=== PATIENT | male | born 1955 ===

== ENCOUNTER 2018-05-07 15:42 | Inpatient (IN) ==
[2018-05-07] MEDS ORDERED: ACETAMINOPHEN 325 MG TABLET PO PRN (17:18)
[2018-05-07] MEDS ORDERED: ONDANSETRON 4 MG/2 ML VIAL IV PRN (17:18)
[2018-05-07] MEDS ORDERED: FUROSEMIDE INJ 200 MG in SODIUM CHLORIDE 0.9% 50 ML IV ONE (17:22)
[2018-05-07] MEDS ORDERED: ENOXAPARIN 30 MG/0.3 ML SYRINGE SUBCUT SCH (17:30)
[2018-05-07 18:03] LABS: Basophils % 0.2 % (0.0-0.8); Eosinophils # 0.1 10*3/uL (0.0-0.87); Eosinophils % 0.9 % (0.00-10.9); Hematocrit 40.1 VOL% (42.0-52.0); Hemoglobin 13.9 GM/DL (14.0-18.0); Immature Granulocytes % 0.1 %; Immature Granulocytes Absolute 0.01 #; Lymphocytes # 0.9 10*3/uL (1.4-4.0); Lymphocytes % 11.2 % (21.2-54.2); Mean Corpuscular HGB Conc 34.7 GM/DL (32-36); Mean Corpuscular Hemoglobin 31 PG (27-34); Mean Corpuscular Volume 90.3 FL (87-102); Mean Platelet Volume 10.1 FL (9.6-12.0); Monocytes # 0.9 10*3/uL (0.11-0.8); Monocytes % 11.6 % (1.7-12.7); Neutrophils # 6.1 10*3/uL (1.4-7.4); Platelet Count 164 T/CUMM (130-400); Red Blood Count 4.44 MC/CUMM (3.8-5.5); Red Cell Distribution Width 13.8 % (9.3-17.3)
[2018-05-07 19:19] LABS: Calcium 7.3 MG/DL (8.5-10.1); Osmolality,Calculated 291.9 MOS/KG (273-304); Troponin I 0.03 NG/ML (0.00-0.045)
[2018-05-07] MEDS: amLODIPine 2.5 MG TABLET PO SCH (21:28)
[2018-05-07] MEDS: CARVEDILOL 3.125 MG TABLET PO SCH (21:28)
[2018-05-07] MEDS: APIXABAN 2.5 MG TABLET PO SCH (21:28)
[2018-05-07] MEDS: ISOSORBIDE DINITRATE 20 MG TABLET PO SCH (21:28)
[2018-05-07] MEDS: INSULIN GLARGINE 100 UNIT/ML SUBCUT SCH (22:10)
[2018-05-08 05:44] LABS: Calcium 7.9 MG/DL (8.5-10.1); Osmolality,Calculated 295.2 MOS/KG (273-304); Troponin I 0.042 NG/ML (0.00-0.045)
[2018-05-08] MEDS: hydrALAZINE 10 MG TABLET PO SCH (09:08)
[2018-05-08] MEDS: ISOSORBIDE DINITRATE 20 MG TABLET PO SCH ×3 (09:08→21:30)
[2018-05-08] MEDS: amLODIPine 2.5 MG TABLET PO SCH ×2 (09:08→21:30)
[2018-05-08] MEDS: SEVELAMER CARBONATE 800 MG TABLET PO SCH ×3 (09:10→16:32)
[2018-05-08] MEDS: ASPIRIN EC 81 MG TABLET PO SCH (09:11)
[2018-05-08] MEDS: PANTOPRAZOLE 40 MG TABLET PO SCH (09:11)
[2018-05-08] MEDS: AMIODARONE 200 MG TABLET PO SCH (09:11)
[2018-05-08] MEDS: CARVEDILOL 3.125 MG TABLET PO SCH ×2 (09:11→18:09)
[2018-05-08] MEDS: glipiZIDE 5 MG TABLET PO SCH (09:11)
[2018-05-08] MEDS: APIXABAN 2.5 MG TABLET PO SCH ×2 (09:11→21:30)
[2018-05-08] MEDS: ERYTHROMYCIN 0.5% OPHT OINT 3.5 GM TUBE BOTH EYES SCH ×3 (12:23→21:30)
[2018-05-08] MEDS: INSULIN REGULAR 100 UNIT/ML SUBCUT SCH ×3 (12:23→20:19)
[2018-05-08] MEDS ORDERED: ALBUTEROL/IPRATROPIUM 3 ML NEB RESP TX PRN (18:25)
[2018-05-08] MEDS ORDERED: methylPREDNISolone SOD SUC 125 MG/2 ML VIAL IV ONE (18:34)
[2018-05-08] MEDS: ALBUTEROL/IPRATROPIUM 3 ML NEB RESP TX SCH (18:35)
[2018-05-08] MEDS ORDERED: methylPREDNISolone SOD SUC 125 MG/2 ML VIAL ONE (18:40)
[2018-05-08] MEDS: INSULIN GLARGINE 100 UNIT/ML SUBCUT SCH (21:30)
[2018-05-09] MEDS: ALBUTEROL/IPRATROPIUM 3 ML NEB RESP TX SCH ×4 (00:42→19:41)
[2018-05-09 01:35] LABS: Basophils % 0.2 % (0.0-0.8); Hematocrit 37.3 VOL% (42.0-52.0); Hemoglobin 12.5 GM/DL (14.0-18.0); Immature Granulocytes % 0.3 %; Immature Granulocytes Absolute 0.03 #; Lymphocytes # 0.3 10*3/uL (1.4-4.0); Lymphocytes % 2.7 % (21.2-54.2); Mean Corpuscular HGB Conc 33.5 GM/DL (32-36); Mean Corpuscular Hemoglobin 31 PG (27-34); Mean Corpuscular Volume 92.3 FL (87-102); Monocytes # 0.5 10*3/uL (0.11-0.8); Monocytes % 4.9 % (1.7-12.7); Neutrophils # 9.6 10*3/uL (1.4-7.4); Neutrophils % 91.9 % (38.7-73.9); Platelet Count 169 T/CUMM (130-400); Red Blood Count 4.04 MC/CUMM (3.8-5.5); Red Cell Distribution Width 13.8 % (9.3-17.3); White Blood Count 10.5 T/CUMM (4-12)
[2018-05-09 02:02] LABS: Osmolality,Calculated 285.7 MOS/KG (273-304); Potassium 4.9 MMOL/L (3.5-5.1)
[2018-05-09 05:34] LABS: Band Neutrophils 16 % (0-10); Lymphocytes 1 % (20-55); Platelet Estimate Adequate; Segmented Neutrophils 80 % (50-85); Total Cells Counted 100
[2018-05-09] MEDS: glipiZIDE 5 MG TABLET PO SCH (08:36)
[2018-05-09] MEDS: ASPIRIN EC 81 MG TABLET PO SCH (08:36)
[2018-05-09] MEDS: AMIODARONE 200 MG TABLET PO SCH (08:36)
[2018-05-09] MEDS: APIXABAN 2.5 MG TABLET PO SCH ×2 (08:36→21:30)
[2018-05-09] MEDS: INSULIN REGULAR 100 UNIT/ML SUBCUT SCH ×4 (08:36→21:31)
[2018-05-09] MEDS: SEVELAMER CARBONATE 800 MG TABLET PO SCH ×3 (08:36→16:56)
[2018-05-09] MEDS: hydrALAZINE 10 MG TABLET PO SCH (08:36)
[2018-05-09] MEDS: amLODIPine 2.5 MG TABLET PO SCH ×2 (08:36→21:31)
[2018-05-09] MEDS: ISOSORBIDE DINITRATE 20 MG TABLET PO SCH ×3 (08:36→21:30)
[2018-05-09] MEDS: CARVEDILOL 3.125 MG TABLET PO SCH ×2 (08:36→17:55)
[2018-05-09] MEDS: PANTOPRAZOLE 40 MG TABLET PO SCH (08:36)
[2018-05-09] MEDS: ERYTHROMYCIN 0.5% OPHT OINT 3.5 GM TUBE BOTH EYES SCH ×4 (08:49→21:31)
[2018-05-09] MEDS: INSULIN GLARGINE 100 UNIT/ML SUBCUT SCH (21:31)
[2018-05-10] MEDS: ALBUTEROL/IPRATROPIUM 3 ML NEB RESP TX SCH ×4 (00:41→19:00)
[2018-05-10 05:06] LABS: Basophils % 0.3 % (0.0-0.8); Eosinophils % 0.2 % (0.00-10.9); Hematocrit 40.1 VOL% (42.0-52.0); Hemoglobin 13.3 GM/DL (14.0-18.0); Immature Granulocytes % 0.4 %; Immature Granulocytes Absolute 0.04 #; Lymphocytes # 0.8 10*3/uL (1.4-4.0); Lymphocytes % 7.6 % (21.2-54.2); Mean Corpuscular HGB Conc 33.2 GM/DL (32-36); Mean Corpuscular Hemoglobin 31 PG (27-34); Mean Corpuscular Volume 92.4 FL (87-102); Mean Platelet Volume 9.9 FL (9.6-12.0); Monocytes # 1.4 10*3/uL (0.11-0.8); Monocytes % 12.9 % (1.7-12.7); Neutrophils # 8.4 10*3/uL (1.4-7.4); Neutrophils % 78.6 % (38.7-73.9); Platelet Count 214 T/CUMM (130-400); Red Blood Count 4.34 MC/CUMM (3.8-5.5); Red Cell Distribution Width 13.7 % (9.3-17.3); White Blood Count 10.7 T/CUMM (4-12)
[2018-05-10 05:40] LABS: Calcium 8.7 MG/DL (8.5-10.1); Osmolality,Calculated 279.5 MOS/KG (273-304); Potassium 4.5 MMOL/L (3.5-5.1)
[2018-05-10] MEDS: INSULIN REGULAR 100 UNIT/ML SUBCUT SCH ×4 (07:35→21:10)
[2018-05-10] MEDS: AMIODARONE 200 MG TABLET PO SCH (08:28)
[2018-05-10] MEDS: hydrALAZINE 10 MG TABLET PO SCH (08:28)
[2018-05-10] MEDS: SEVELAMER CARBONATE 800 MG TABLET PO SCH ×3 (08:28→16:03)
[2018-05-10] MEDS: ASPIRIN EC 81 MG TABLET PO SCH (08:28)
[2018-05-10] MEDS: amLODIPine 2.5 MG TABLET PO SCH ×2 (08:28→21:09)
[2018-05-10] MEDS: PANTOPRAZOLE 40 MG TABLET PO SCH (08:28)
[2018-05-10] MEDS: ISOSORBIDE DINITRATE 20 MG TABLET PO SCH ×3 (08:28→21:09)
[2018-05-10] MEDS: CARVEDILOL 3.125 MG TABLET PO SCH ×2 (08:28→16:05)
[2018-05-10] MEDS: glipiZIDE 5 MG TABLET PO SCH (08:28)
[2018-05-10] MEDS: ERYTHROMYCIN 0.5% OPHT OINT 3.5 GM TUBE BOTH EYES SCH ×4 (08:28→21:10)
[2018-05-10] MEDS: APIXABAN 2.5 MG TABLET PO SCH ×2 (08:29→21:09)
[2018-05-10] MEDS: INSULIN GLARGINE 100 UNIT/ML SUBCUT SCH (21:09)
[2018-05-11] MEDS: ALBUTEROL/IPRATROPIUM 3 ML NEB RESP TX SCH ×4 (00:20→19:04)
[2018-05-11 05:57] LABS: Osmolality,Calculated 285.7 MOS/KG (273-304); Potassium 4.6 MMOL/L (3.5-5.1)
[2018-05-11] MEDS: PANTOPRAZOLE 40 MG TABLET PO SCH (09:04)
[2018-05-11] MEDS: SEVELAMER CARBONATE 800 MG TABLET PO SCH ×3 (09:04→17:00)
[2018-05-11] MEDS: APIXABAN 2.5 MG TABLET PO SCH ×2 (09:04→21:10)
[2018-05-11] MEDS: INSULIN REGULAR 100 UNIT/ML SUBCUT SCH ×4 (09:04→21:10)
[2018-05-11] MEDS: hydrALAZINE 10 MG TABLET PO SCH (09:04)
[2018-05-11] MEDS: ISOSORBIDE DINITRATE 20 MG TABLET PO SCH ×3 (09:04→21:10)
[2018-05-11] MEDS: glipiZIDE 5 MG TABLET PO SCH (09:04)
[2018-05-11] MEDS: AMIODARONE 200 MG TABLET PO SCH (09:04)
[2018-05-11] MEDS: CARVEDILOL 3.125 MG TABLET PO SCH ×2 (09:04→17:00)
[2018-05-11] MEDS: amLODIPine 2.5 MG TABLET PO SCH ×2 (09:04→21:10)
[2018-05-11] MEDS: ASPIRIN EC 81 MG TABLET PO SCH (09:04)
[2018-05-11] MEDS: ERYTHROMYCIN 0.5% OPHT OINT 3.5 GM TUBE BOTH EYES SCH ×4 (09:07→21:10)
[2018-05-11] MEDS ORDERED: HYDROCORTISONE 100 MG VIAL IV ONE (09:44)
[2018-05-11] MEDS: INSULIN GLARGINE 100 UNIT/ML SUBCUT SCH (21:10)
[2018-05-12] MEDS: ALBUTEROL/IPRATROPIUM 3 ML NEB RESP TX SCH ×3 (00:22→13:27)
[2018-05-12] MEDS: SEVELAMER CARBONATE 800 MG TABLET PO SCH ×2 (07:30→11:30)
[2018-05-12] MEDS: INSULIN REGULAR 100 UNIT/ML SUBCUT SCH ×2 (07:30→11:30)
[2018-05-12] MEDS: ISOSORBIDE DINITRATE 20 MG TABLET PO SCH (09:00)
[2018-05-12] MEDS: glipiZIDE 5 MG TABLET PO SCH ×2 (09:00→16:41)
[2018-05-12] MEDS: ERYTHROMYCIN 0.5% OPHT OINT 3.5 GM TUBE BOTH EYES SCH (09:00)
[2018-05-12] MEDS: AMIODARONE 200 MG TABLET PO SCH (09:00)
[2018-05-12] MEDS: APIXABAN 2.5 MG TABLET PO SCH (09:00)
[2018-05-12] MEDS: amLODIPine 2.5 MG TABLET PO SCH (09:00)
[2018-05-12] MEDS: PANTOPRAZOLE 40 MG TABLET PO SCH (09:00)
[2018-05-12 13:38] VITALS: BP 139/76
[2018-05-12] MEDS ORDERED: TUBERCULIN SKIN TEST 0.1 ML SYRINGE INTRADERM ONE (15:55)
[2018-05-12] MEDS: CARVEDILOL 3.125 MG TABLET PO SCH (16:22)
[2018-05-12] MEDS: hydrALAZINE 10 MG TABLET PO SCH (16:22)
[2018-05-12] MEDS: ASPIRIN EC 81 MG TABLET PO SCH (16:24)
== END 2018-05-12 16:59 | disposition home health service (06) | DRG 640 ==
LOC: N.5E → SUATTDRO 16:16 → N.ICU 05-08 19:07 → N.5E 05-10 10:10
PROVIDERS: ADMIT Internal Medicine; ATTEND Family Medicine

== ENCOUNTER 2021-06-09 21:23 | Inpatient (IN) ==
[2021-06-09 21:56] LABS: Basophils % 0.4 % (0.0-0.8); Eosinophils % 0.4 % (0.00-10.9); Hematocrit 45.9 VOL% (42.0-52.0); Hemoglobin 15.8 GM/DL (14.0-18.0); Immature Granulocytes % 0.4 %; Immature Granulocytes Absolute 0.02 #; Lymphocytes # 0.7 10*3/uL (1.4-4.0); Lymphocytes % 14.3 % (21.2-54.2); Mean Corpuscular HGB Conc 34.4 GM/DL (32-36); Mean Corpuscular Volume 89.8 FL (87-102); Mean Platelet Volume 10.3 FL (9.6-12.0); Monocytes % 9.7 % (1.7-12.7); Neutrophils % 74.8 % (38.7-73.9); Platelet Count 137 T/CUMM (130-400); Red Blood Count 5.11 MC/CUMM (3.8-5.5); Red Cell Distribution Width 14.4 % (9.3-17.3)
[2021-06-09 22:05] LABS: INR 1.1
[2021-06-09 22:23] LABS: Alanine Aminotransferase 16 U/L (16-61); Albumin 3.3 G/DL (3.4-5.0); Alkaline Phosphatase 59 U/L (45-117); Aspartate Amino Transferase 19 U/L (0-37); Blood Urea Nitrogen 52 MG/DL (7-18); Carbon Dioxide 24 MMOL/L (21-32); Estimated Glom Filtration Rate 5 ML/MIN; Glucose 248 MG/DL (74-106); Osmolality,Calculated 291.1 MOS/KG (273-304); Potassium 3.7 MMOL/L (3.5-5.1); Sodium 135 MMOL/L (136-145); Total Protein 8.3 G/DL (6.4-8.2)
[2021-06-09] MEDS ORDERED: DEXAMETHASONE 4 MG/1 ML VIAL IV STA (22:36)
[2021-06-09] MEDS ORDERED: AZITHROMYCIN INJ 500 MG in SODIUM CHLORIDE 0.9% 250 ML IV STA (22:37)
[2021-06-09] MEDS ORDERED: hydrALAZINE 20 MG/1 ML VIAL IV STA (22:37)
[2021-06-09] MEDS ORDERED: cefTRIAXone 1,000 MG in SODIUM CHLORIDE 0.9% 100 ML IV STA (22:37)
[2021-06-09] MEDS ORDERED: DEXAMETHASONE 10 MG/1 ML VIAL ONE (22:39)
[2021-06-09] MEDS ORDERED: ZALEPLON 5 MG CAPSULE PO PRN (23:09)
[2021-06-09] MEDS ORDERED: DEXTROSE 50% 25 GM/50 ML VIAL IV PRN (23:09)
[2021-06-09] MEDS ORDERED: DEXTROSE 50% 25 GM/50 ML SYRINGE IV PRN (23:09)
[2021-06-09] MEDS ORDERED: ACETAMINOPHEN 325 MG TABLET PO PRN (23:09)
[2021-06-09] MEDS ORDERED: guaiFENesin/DM ER 600-30 MG TABLET PO PRN (23:09)
[2021-06-09] MEDS ORDERED: diphenhydrAMINE CAP 25 MG CAPSULE PO PRN (23:09)
[2021-06-09] MEDS ORDERED: GLUCAGON 1 MG VIAL IM PRN ×2 (23:09)
[2021-06-09] MEDS ORDERED: ONDANSETRON 4 MG/2 ML VIAL IV PRN (23:09)
[2021-06-09] MEDS ORDERED: NICOTINE 21 MG/24 HR PATCH TRANSDERM PRN (23:09)
[2021-06-09] MEDS ORDERED: MORPHINE 2 MG/1 ML SYRINGE IV PRN (23:09)
[2021-06-09] MEDS ORDERED: hydrALAZINE 20 MG/1 ML VIAL IV PRN (23:09)
[2021-06-09] MEDS ORDERED: NITROGLYCERIN SL 0.4 MG TABLET SL PRN (23:16)
[2021-06-09] MEDS ORDERED: HEPARIN 5,000 UNIT/1 ML VIAL SUBCUT SCH (23:30)
[2021-06-09] MEDS ORDERED: INSULIN LISPRO 100 UNIT/ML SUBCUT STA (23:31)
[2021-06-10] MEDS ORDERED: HEPARIN DRIP 25,000 UNITS/500 ML PREMIX IV SCH (01:00)
[2021-06-10 03:23] LABS: Atypical Lymphocytes Few; Hypochromasia 1+; Platelet Estimate Normal; Reactive Lymphocytes Few
[2021-06-10 04:02] LABS: Basophils % 0.4 % (0.0-0.8); Hematocrit 44.4 VOL% (42.0-52.0); Hemoglobin 15.2 GM/DL (14.0-18.0); Immature Granulocytes % 0.4 %; Immature Granulocytes Absolute 0.02 #; Lymphocytes # 0.4 10*3/uL (1.4-4.0); Lymphocytes % 6.5 % (21.2-54.2); Mean Corpuscular HGB Conc 34.2 GM/DL (32-36); Mean Corpuscular Volume 90.6 FL (87-102); Mean Platelet Volume 10.4 FL (9.6-12.0); Monocytes % 1.9 % (1.7-12.7); Neutrophils % 90.8 % (38.7-73.9); Platelet Count 130 T/CUMM (130-400); Red Cell Distribution Width 14.5 % (9.3-17.3); White Blood Count 5.4 T/CUMM (4-12)
[2021-06-10 04:20] LABS: Band Neutrophils 2 % (0-10); Lymphocytes 4 % (20-55); Segmented Neutrophils 93 % (50-85); Total Cells Counted 100
[2021-06-10 04:21] LABS: Platelet Estimate Normal
[2021-06-10 04:24] LABS: Calcium 8.4 MG/DL (8.5-10.1); Osmolality,Calculated 292.4 MOS/KG (273-304); Potassium 4.7 MMOL/L (3.5-5.1)
[2021-06-10] MEDS: SEVELAMER CARBONATE 800 MG TABLET PO SCH ×3 (09:10→18:15)
[2021-06-10] MEDS: BISACODYL 5 MG TABLET PO SCH (09:11)
[2021-06-10] MEDS: carvediloL 6.25 MG TABLET PO SCH ×2 (09:11→21:25)
[2021-06-10] MEDS: hydrALAZINE 10 MG TABLET PO SCH (09:11)
[2021-06-10] MEDS: DEXAMETHASONE 10 MG/1 ML VIAL IV SCH (09:11)
[2021-06-10] MEDS: AMIODARONE 200 MG TABLET PO SCH (09:11)
[2021-06-10] MEDS: ATORVASTATIN 20 MG TABLET PO SCH (09:12)
[2021-06-10] MEDS: PANTOPRAZOLE 40 MG TABLET PO SCH (09:12)
[2021-06-10] MEDS: amLODIPine 5 MG TABLET PO SCH (09:12)
[2021-06-10] MEDS: ISOSORBIDE DINITRATE 20 MG TABLET PO SCH (09:13)
[2021-06-10] MEDS: INSULIN LISPRO 100 UNIT/ML SUBCUT SCH ×4 (09:13→21:25)
[2021-06-10 14:48] LABS: Hepatitis B Core IgM Quant 0.16 Index; Hepatitis B Surface Ag Quant < 0.10 Index; Hepatitis B Surface Ag Result Non-Reactive (NonReactive); Hepatitis C Virus Ab Quant 0.06 Index; Hepatitis C Virus Ab Result Non-Reactive (NonReactive)
[2021-06-10] MEDS ORDERED: HEPARIN 10,000 UNIT/10 ML VIAL IV ONE (15:15)
[2021-06-10] MEDS: AZITHROMYCIN INJ 500 MG in SODIUM CHLORIDE 0.9% 250 ML IV SCH (21:24)
[2021-06-10] MEDS: cefTRIAXone 1,000 MG in SODIUM CHLORIDE 0.9% 100 ML IV SCH (21:25)
[2021-06-10] MEDS: APIXABAN 2.5 MG TABLET PO SCH (21:25)
[2021-06-11 08:53] LABS: Basophils % 0.2 % (0.0-0.8); Hematocrit 43.5 VOL% (42.0-52.0); Hemoglobin 14.7 GM/DL (14.0-18.0); Immature Granulocytes % 0.4 %; Immature Granulocytes Absolute 0.05 #; Lymphocytes # 0.4 10*3/uL (1.4-4.0); Lymphocytes % 2.9 % (21.2-54.2); Mean Corpuscular HGB Conc 33.8 GM/DL (32-36); Mean Corpuscular Volume 90.6 FL (87-102); Mean Platelet Volume 10.7 FL (9.6-12.0); Monocytes % 5.2 % (1.7-12.7); Neutrophils % 91.3 % (38.7-73.9); Platelet Count 153 T/CUMM (130-400); Red Cell Distribution Width 14.5 % (9.3-17.3); White Blood Count 12.5 T/CUMM (4-12)
[2021-06-11 09:13] LABS: Calcium 9.3 MG/DL (8.5-10.1); Osmolality,Calculated 290.8 MOS/KG (273-304); Potassium 4.2 MMOL/L (3.5-5.1)
[2021-06-11 09:14] LABS: Band Neutrophils 11 % (0-10); Lymphocytes 4 % (20-55); Segmented Neutrophils 85 % (50-85); Total Cells Counted 100
[2021-06-11 09:15] LABS: Hypochromasia 1+; Microcytosis 1+
[2021-06-11 09:16] LABS: Platelet Estimate Adequate; Polychromasia Slight
[2021-06-11] MEDS: SEVELAMER CARBONATE 800 MG TABLET PO SCH ×3 (10:10→16:54)
[2021-06-11] MEDS: INSULIN LISPRO 100 UNIT/ML SUBCUT SCH ×4 (10:10→20:26)
[2021-06-11] MEDS: amLODIPine 5 MG TABLET PO SCH (10:10)
[2021-06-11] MEDS: ATORVASTATIN 20 MG TABLET PO SCH (10:10)
[2021-06-11] MEDS: AMIODARONE 200 MG TABLET PO SCH (10:10)
[2021-06-11] MEDS: APIXABAN 2.5 MG TABLET PO SCH ×2 (10:10→20:26)
[2021-06-11] MEDS: PANTOPRAZOLE 40 MG TABLET PO SCH (10:10)
[2021-06-11] MEDS: ISOSORBIDE DINITRATE 20 MG TABLET PO SCH (10:10)
[2021-06-11] MEDS: hydrALAZINE 10 MG TABLET PO SCH (10:10)
[2021-06-11] MEDS: DEXAMETHASONE 10 MG/1 ML VIAL IV SCH (10:10)
[2021-06-11] MEDS: carvediloL 6.25 MG TABLET PO SCH ×2 (10:10→20:26)
[2021-06-11] MEDS: BISACODYL 5 MG TABLET PO SCH (11:49)
[2021-06-11 15:01] LABS: Osmolality,Calculated 292.7 MOS/KG (273-304); Potassium 4.2 MMOL/L (3.5-5.1)
[2021-06-11] MEDS: cefTRIAXone 1,000 MG in SODIUM CHLORIDE 0.9% 100 ML IV SCH (20:25)
[2021-06-11 21:27] LABS: ABG Base Excess -5.2 MMOL/L (-2.5-2.5); ABG HCO3 20.1 MMOL/L (20-26); ABG Oxygen Saturation 92.8 % (95-100); ABG PCO2 34.3 MM HG (35-48); ABG PH 7.362 (7.35-7.45); ABG PO2 69.7 MM HG (80-95)
[2021-06-11] MEDS: AZITHROMYCIN INJ 500 MG in SODIUM CHLORIDE 0.9% 250 ML IV SCH (21:51)
[2021-06-12 05:49] LABS: Basophils % 0.1 % (0.0-0.8); Hematocrit 39.1 VOL% (42.0-52.0); Hemoglobin 13.1 GM/DL (14.0-18.0); Immature Granulocytes % 0.7 %; Immature Granulocytes Absolute 0.07 #; Lymphocytes # 0.3 10*3/uL (1.4-4.0); Mean Corpuscular HGB Conc 33.5 GM/DL (32-36); Mean Corpuscular Volume 90.9 FL (87-102); Mean Platelet Volume 10.6 FL (9.6-12.0); Monocytes % 5.3 % (1.7-12.7); Neutrophils % 90.9 % (38.7-73.9); Platelet Count 134 T/CUMM (130-400); Red Cell Distribution Width 14.6 % (9.3-17.3); White Blood Count 10.5 T/CUMM (4-12)
[2021-06-12 06:10] LABS: Band Neutrophils 3 % (0-10); Lymphocytes 3 % (20-55); Platelet Estimate Normal; Segmented Neutrophils 90 % (50-85); Total Cells Counted 100
[2021-06-12] MEDS: AMIODARONE 200 MG TABLET PO SCH (08:47)
[2021-06-12] MEDS: BISACODYL 5 MG TABLET PO SCH (08:47)
[2021-06-12] MEDS: APIXABAN 2.5 MG TABLET PO SCH ×2 (08:47→21:10)
[2021-06-12] MEDS: SEVELAMER CARBONATE 800 MG TABLET PO SCH ×3 (08:47→16:31)
[2021-06-12] MEDS: INSULIN LISPRO 100 UNIT/ML SUBCUT SCH ×4 (08:47→21:11)
[2021-06-12] MEDS: hydrALAZINE 10 MG TABLET PO SCH (08:48)
[2021-06-12] MEDS: ISOSORBIDE DINITRATE 20 MG TABLET PO SCH (08:48)
[2021-06-12] MEDS: DEXAMETHASONE 10 MG/1 ML VIAL IV SCH (08:48)
[2021-06-12] MEDS: carvediloL 6.25 MG TABLET PO SCH ×2 (08:48→21:10)
[2021-06-12] MEDS: amLODIPine 5 MG TABLET PO SCH (08:48)
[2021-06-12] MEDS: PANTOPRAZOLE 40 MG TABLET PO SCH (08:48)
[2021-06-12] MEDS: ATORVASTATIN 20 MG TABLET PO SCH (08:48)
[2021-06-13 06:40] LABS: Hematocrit 39.3 VOL% (42.0-52.0); Hemoglobin 13.5 GM/DL (14.0-18.0); Immature Granulocytes % 0.7 %; Immature Granulocytes Absolute 0.07 #; Lymphocytes # 0.3 10*3/uL (1.4-4.0); Lymphocytes % 3.4 % (21.2-54.2); Mean Corpuscular HGB Conc 34.4 GM/DL (32-36); Mean Corpuscular Volume 90.8 FL (87-102); Monocytes % 5.4 % (1.7-12.7); Neutrophils % 90.5 % (38.7-73.9); Platelet Count 132 T/CUMM (130-400); Red Blood Count 4.33 MC/CUMM (3.8-5.5); Red Cell Distribution Width 14.6 % (9.3-17.3); White Blood Count 9.6 T/CUMM (4-12)
[2021-06-13 07:01] LABS: Calcium 8.9 MG/DL (8.5-10.1); Osmolality,Calculated 284.5 MOS/KG (273-304); Potassium 4.3 MMOL/L (3.5-5.1)
[2021-06-13 07:09] LABS: Band Neutrophils 4 % (0-10); Lymphocytes 2 % (20-55); Platelet Estimate Normal; Segmented Neutrophils 89 % (50-85); Total Cells Counted 100
[2021-06-13] MEDS: DEXAMETHASONE 10 MG/1 ML VIAL IV SCH (08:30)
[2021-06-13] MEDS: PANTOPRAZOLE 40 MG TABLET PO SCH (08:33)
[2021-06-13] MEDS: hydrALAZINE 10 MG TABLET PO SCH (08:33)
[2021-06-13] MEDS: SEVELAMER CARBONATE 800 MG TABLET PO SCH ×3 (08:33→17:29)
[2021-06-13] MEDS: BISACODYL 5 MG TABLET PO SCH (08:33)
[2021-06-13] MEDS: ATORVASTATIN 20 MG TABLET PO SCH (08:33)
[2021-06-13] MEDS: ISOSORBIDE DINITRATE 20 MG TABLET PO SCH (08:34)
[2021-06-13] MEDS: carvediloL 6.25 MG TABLET PO SCH (08:34)
[2021-06-13] MEDS: AMIODARONE 200 MG TABLET PO SCH (08:34)
[2021-06-13] MEDS: amLODIPine 5 MG TABLET PO SCH (08:34)
[2021-06-13] MEDS: INSULIN LISPRO 100 UNIT/ML SUBCUT SCH ×4 (08:35→20:32)
[2021-06-13] MEDS: APIXABAN 2.5 MG TABLET PO SCH ×2 (08:38→20:32)
[2021-06-13 08:56] VITALS: BP 137/71
[2021-06-13] MEDS ORDERED: SODIUM CHLORIDE 0.9% 500 ML IV ONE (10:00)
[2021-06-13] MEDS ORDERED: NOREPINEPHRINE 4 MG/4 ML VIAL IV ONE (10:58)
[2021-06-13] MEDS: NOREPINEPHRINE 8 MG in SODIUM CHLORIDE 0.9% 242 ML IV PRN (11:04)
[2021-06-13] MEDS ORDERED: VANCOMYCIN INJ 500 MG in SODIUM CHLORIDE 0.9% 100 ML IV PRN (11:41)
[2021-06-13] MEDS ORDERED: VANCOMYCIN INJ 1,750 MG in SODIUM CHLORIDE 0.9% 500 ML IV ONE (12:30)
[2021-06-13] MEDS: DOPamine 800 MG/250 ML PREMIX IV PRN (12:50)
[2021-06-13] MEDS: AZITHROMYCIN INJ 500 MG in SODIUM CHLORIDE 0.9% 250 ML IV SCH (13:11)
[2021-06-14 05:47] LABS: Basophils % 0.1 % (0.0-0.8); Hematocrit 40.4 VOL% (42.0-52.0); Hemoglobin 13.6 GM/DL (14.0-18.0); Immature Granulocytes % 0.6 %; Immature Granulocytes Absolute 0.07 #; Lymphocytes # 0.3 10*3/uL (1.4-4.0); Lymphocytes % 2.5 % (21.2-54.2); Mean Corpuscular HGB Conc 33.7 GM/DL (32-36); Mean Platelet Volume 11.1 FL (9.6-12.0); Monocytes % 5.2 % (1.7-12.7); Neutrophils % 91.6 % (38.7-73.9); Platelet Count 140 T/CUMM (130-400); Red Blood Count 4.44 MC/CUMM (3.8-5.5); Red Cell Distribution Width 14.3 % (9.3-17.3); White Blood Count 11.1 T/CUMM (4-12)
[2021-06-14 05:53] LABS: Calcium 8.6 MG/DL (8.5-10.1); Osmolality,Calculated 294.8 MOS/KG (273-304); Potassium 4.8 MMOL/L (3.5-5.1)
[2021-06-14 06:35] LABS: Lymphocytes 1 % (20-55); Platelet Estimate Adequate; Segmented Neutrophils 92 % (50-85); Total Cells Counted 100
[2021-06-14] MEDS: AMIODARONE 200 MG TABLET PO SCH (08:52)
[2021-06-14] MEDS: DEXAMETHASONE 10 MG/1 ML VIAL IV SCH (08:52)
[2021-06-14] MEDS: SEVELAMER CARBONATE 800 MG TABLET PO SCH ×3 (08:52→17:08)
[2021-06-14] MEDS: INSULIN LISPRO 100 UNIT/ML SUBCUT SCH ×4 (08:52→20:30)
[2021-06-14] MEDS: ATORVASTATIN 20 MG TABLET PO SCH (08:53)
[2021-06-14] MEDS: PANTOPRAZOLE 40 MG TABLET PO SCH (08:53)
[2021-06-14] MEDS: BISACODYL 5 MG TABLET PO SCH (08:53)
[2021-06-14] MEDS: APIXABAN 2.5 MG TABLET PO SCH ×2 (08:53→20:31)
[2021-06-14] MEDS: AZITHROMYCIN INJ 500 MG in SODIUM CHLORIDE 0.9% 250 ML IV SCH (13:00)
[2021-06-14 16:30] LABS: ABG Base Excess -5.2 MMOL/L (-2.5-2.5); ABG Oxygen Saturation 91.8 % (95-100); ABG PCO2 45.5 MM HG (35-48); ABG PH 7.287 (7.35-7.45); ABG PO2 72.6 MM HG (80-95); ABG TCO2 18.9 MMOL/L (23-27)
[2021-06-14] MEDS ORDERED: VANCOMYCIN INJ 500 MG in SODIUM CHLORIDE 0.9% 100 ML IV ONE (17:00)
[2021-06-14] MEDS: DOPamine 800 MG/250 ML PREMIX IV PRN (20:35)
[2021-06-15 06:15] LABS: Ferritin 6569.2 ng/mL (26-388)
[2021-06-15] MEDS: DEXAMETHASONE 10 MG/1 ML VIAL IV SCH (08:27)
[2021-06-15] MEDS: INSULIN LISPRO 100 UNIT/ML SUBCUT SCH ×4 (08:45→21:05)
[2021-06-15] MEDS: SEVELAMER CARBONATE 800 MG TABLET PO SCH ×3 (08:46→17:45)
[2021-06-15] MEDS: AZITHROMYCIN INJ 500 MG in SODIUM CHLORIDE 0.9% 250 ML IV SCH (12:26)
[2021-06-15] MEDS: BISACODYL 5 MG TABLET PO SCH (13:02)
[2021-06-15] MEDS: ATORVASTATIN 20 MG TABLET PO SCH (13:02)
[2021-06-15] MEDS: APIXABAN 2.5 MG TABLET PO SCH ×2 (13:02→21:05)
[2021-06-15] MEDS: AMIODARONE 200 MG TABLET PO SCH (13:02)
[2021-06-15] MEDS: FAMOTIDINE 20 MG TABLET PO SCH (13:03)
[2021-06-16 05:00] LABS: ABG Base Excess -8.7 MMOL/L (-2.5-2.5); ABG HCO3 17.6 MMOL/L (20-26); ABG PCO2 39.2 MM HG (35-48); ABG TCO2 18.8 MMOL/L (23-27)
[2021-06-16 05:06] LABS: ABG PO2 35.7 MM HG (80-95)
[2021-06-16 06:10] LABS: Basophils % 0.1 % (0.0-0.8); Hemoglobin 14.2 GM/DL (14.0-18.0); Immature Granulocytes % 0.9 %; Immature Granulocytes Absolute 0.15 #; Lymphocytes # 0.3 10*3/uL (1.4-4.0); Lymphocytes % 1.8 % (21.2-54.2); Mean Corpuscular HGB Conc 33.8 GM/DL (32-36); Mean Corpuscular Volume 92.1 FL (87-102); Mean Platelet Volume 11.8 FL (9.6-12.0); Monocytes % 2.3 % (1.7-12.7); Neutrophils % 94.9 % (38.7-73.9); Platelet Count 168 T/CUMM (130-400); Red Blood Count 4.56 MC/CUMM (3.8-5.5); Red Cell Distribution Width 14.9 % (9.3-17.3); White Blood Count 16.3 T/CUMM (4-12)
[2021-06-16 06:26] LABS: Calcium 9.3 MG/DL (8.5-10.1); Osmolality,Calculated 312.4 MOS/KG (273-304); Potassium 5.1 MMOL/L (3.5-5.1)
[2021-06-16 06:51] LABS: Band Neutrophils 1 % (0-10); Lymphocytes 2 % (20-55); Platelet Estimate Normal; Segmented Neutrophils 95 % (50-85); Total Cells Counted 100
[2021-06-16 07:59] LABS: ABG HCO3 14.1 MMOL/L (20-26); ABG Oxygen Saturation 88.1 % (95-100); ABG PCO2 29.7 MM HG (35-48); ABG PH 7.294 (7.35-7.45); ABG PO2 61.5 MM HG (80-95); Allen Test Positive; Pt O2 Delivery Device BIPAP
[2021-06-16] MEDS: INSULIN LISPRO 100 UNIT/ML SUBCUT SCH ×4 (08:46→20:09)
[2021-06-16] MEDS: DEXAMETHASONE 10 MG/1 ML VIAL IV SCH (08:46)
[2021-06-16] MEDS ORDERED: SUCCINYLCHOLINE 200 MG/10 ML VIAL ONE (10:14)
[2021-06-16] MEDS ORDERED: ETOMIDATE 20 MG/10 ML VIAL IV ONE ×2 (10:14→10:30)
[2021-06-16] MEDS ORDERED: SUCCINYLCHOLINE 200 MG/10 ML VIAL IV ONE (10:30)
[2021-06-16] MEDS: AMIODARONE 200 MG TABLET PO SCH (10:56)
[2021-06-16] MEDS: SEVELAMER CARBONATE 800 MG TABLET PO SCH ×3 (10:56→16:29)
[2021-06-16] MEDS: BISACODYL 5 MG TABLET PO SCH (10:57)
[2021-06-16] MEDS: ATORVASTATIN 20 MG TABLET PO SCH (10:57)
[2021-06-16] MEDS: APIXABAN 2.5 MG TABLET PO SCH ×2 (10:57→20:08)
[2021-06-16] MEDS: FAMOTIDINE 20 MG TABLET PO SCH (10:57)
[2021-06-16] MEDS: MIDAZOLAM 100 MG in SODIUM CHLORIDE 0.9% 80 ML IV PRN (11:03)
[2021-06-16] MEDS ORDERED: HEPARIN 10,000 UNIT/10 ML VIAL IV PRN (11:54)
[2021-06-16] MEDS: AZITHROMYCIN INJ 500 MG in SODIUM CHLORIDE 0.9% 250 ML IV SCH (12:22)
[2021-06-16 14:53] LABS: ABG Base Excess -0.5 MMOL/L (-2.5-2.5); ABG HCO3 23.9 MMOL/L (20-26); ABG Oxygen Saturation 96.1 % (95-100); ABG PH 7.438 (7.35-7.45); ABG PO2 81.5 MM HG (80-95); ABG TCO2 19.8 MMOL/L (23-27); Allen Test Positive; Pt O2 Delivery Device Ventilator
[2021-06-16] MEDS ORDERED: VANCOMYCIN INJ 500 MG in SODIUM CHLORIDE 0.9% 100 ML IV ONE (15:00)
[2021-06-17 05:29] LABS: Basophils % 0.1 % (0.0-0.8); Hematocrit 39.4 VOL% (42.0-52.0); Hemoglobin 13.2 GM/DL (14.0-18.0); Immature Granulocytes Absolute 0.16 #; Lymphocytes # 0.2 10*3/uL (1.4-4.0); Lymphocytes % 1.4 % (21.2-54.2); Mean Corpuscular HGB Conc 33.5 GM/DL (32-36); Mean Corpuscular Volume 90.2 FL (87-102); Mean Platelet Volume 11.3 FL (9.6-12.0); Monocytes % 1.8 % (1.7-12.7); NRBC # 0.02 10*3/uL; Neutrophils % 95.7 % (38.7-73.9); Platelet Count 143 T/CUMM (130-400); Red Blood Count 4.37 MC/CUMM (3.8-5.5); White Blood Count 15.5 T/CUMM (4-12)
[2021-06-17] MEDS: MIDAZOLAM 100 MG in SODIUM CHLORIDE 0.9% 80 ML IV PRN (05:46)
[2021-06-17 06:00] LABS: Band Neutrophils 4 % (0-10); Lymphocytes 5 % (20-55); Metamyelocytes 1 %; Platelet Estimate Normal; Segmented Neutrophils 88 % (50-85); Total Cells Counted 100
[2021-06-17 06:04] LABS: Ferritin 12031.6 ng/mL (26-388); Osmolality,Calculated 305.1 MOS/KG (273-304); Potassium 4.9 MMOL/L (3.5-5.1); Total Protein 6.7 G/DL (6.4-8.2)
[2021-06-17] MEDS: SEVELAMER CARBONATE 800 MG TABLET PO SCH ×3 (07:36→16:12)
[2021-06-17] MEDS: FAMOTIDINE 20 MG TABLET PO SCH (08:03)
[2021-06-17] MEDS: DEXAMETHASONE 10 MG/1 ML VIAL IV SCH (08:03)
[2021-06-17] MEDS: AMIODARONE 200 MG TABLET PO SCH (08:03)
[2021-06-17] MEDS: APIXABAN 2.5 MG TABLET PO SCH ×2 (08:03→20:35)
[2021-06-17] MEDS: ATORVASTATIN 20 MG TABLET PO SCH (08:03)
[2021-06-17] MEDS: INSULIN LISPRO 100 UNIT/ML SUBCUT SCH ×4 (08:09→20:45)
[2021-06-17 08:22] LABS: ABG Base Excess -6.5 MMOL/L (-2.5-2.5); ABG HCO3 19.2 MMOL/L (20-26); ABG Oxygen Saturation 97.3 % (95-100); ABG PCO2 34.1 MM HG (35-48); ABG TCO2 16.1 MMOL/L (23-27); Allen Test Positive; Pt O2 Delivery Device Ventilator
[2021-06-17] MEDS: BISACODYL 5 MG TABLET PO SCH (09:20)
[2021-06-17] MEDS: AZITHROMYCIN INJ 500 MG in SODIUM CHLORIDE 0.9% 250 ML IV SCH (11:28)
[2021-06-17] MEDS: DOPamine 800 MG/250 ML PREMIX IV PRN (13:11)
[2021-06-17] MEDS: methylPREDNISolone SOD SUC 40 MG/1 ML VIAL IV SCH (17:46)
[2021-06-18] MEDS: methylPREDNISolone SOD SUC 40 MG/1 ML VIAL IV SCH ×5 (00:54→23:46)
[2021-06-18 04:24] LABS: ABG Base Excess -6.6 MMOL/L (-2.5-2.5); ABG HCO3 19.2 MMOL/L (20-26); ABG Oxygen Saturation 98.4 % (95-100); ABG PCO2 35.9 MM HG (35-48); ABG PH 7.326 (7.35-7.45); ABG TCO2 16.3 MMOL/L (23-27); Allen Test Positive; Pt O2 Delivery Device Ventilator
[2021-06-18 06:22] LABS: Basophils % 0.1 % (0.0-0.8); Hematocrit 41.9 VOL% (42.0-52.0); Immature Granulocytes % 0.7 %; Immature Granulocytes Absolute 0.12 #; Lymphocytes # 0.3 10*3/uL (1.4-4.0); Lymphocytes % 1.9 % (21.2-54.2); Mean Corpuscular HGB Conc 33.4 GM/DL (32-36); Mean Corpuscular Volume 91.9 FL (87-102); Mean Platelet Volume 11.7 FL (9.6-12.0); Monocytes % 1.3 % (1.7-12.7); Platelet Count 179 T/CUMM (130-400); Red Blood Count 4.56 MC/CUMM (3.8-5.5); White Blood Count 16.7 T/CUMM (4-12)
[2021-06-18 06:37] LABS: Calcium 9.2 MG/DL (8.5-10.1); Osmolality,Calculated 322.1 MOS/KG (273-304); Potassium 5.8 MMOL/L (3.5-5.1)
[2021-06-18 06:55] LABS: Lymphocytes 2 % (20-55); Segmented Neutrophils 95 % (50-85); Total Cells Counted 100
[2021-06-18 06:55] LABS: Alanine Aminotransferase < 9 U/L (16-61); Alkaline Phosphatase 70 U/L (45-117); Aspartate Amino Transferase 14 U/L (0-37); Blood Urea Nitrogen 131 MG/DL (7-18); Calcium 9.2 MG/DL (8.5-10.1); Carbon Dioxide 17 MMOL/L (21-32); Estimated Glom Filtration Rate 6 ML/MIN; Glucose 283 MG/DL (74-106); Osmolality,Calculated 321.1 MOS/KG (273-304); Potassium 5.8 MMOL/L (3.5-5.1); Sodium 135 MMOL/L (136-145); Total Protein 7.1 G/DL (6.4-8.2)
[2021-06-18 06:57] LABS: Platelet Estimate Normal
[2021-06-18] MEDS: SEVELAMER CARBONATE 800 MG TABLET PO SCH ×3 (08:14→17:51)
[2021-06-18] MEDS: BISACODYL 5 MG TABLET PO SCH (10:17)
[2021-06-18] MEDS: FAMOTIDINE 20 MG TABLET PO SCH (10:17)
[2021-06-18] MEDS: APIXABAN 2.5 MG TABLET PO SCH ×2 (10:17→20:33)
[2021-06-18] MEDS: AMIODARONE 200 MG TABLET PO SCH (10:17)
[2021-06-18] MEDS: INSULIN LISPRO 100 UNIT/ML SUBCUT SCH ×5 (10:17→23:46)
[2021-06-18] MEDS: ATORVASTATIN 20 MG TABLET PO SCH (10:18)
[2021-06-18] MEDS ORDERED: SODIUM POLYSTYRENE SULFATE 15 GM/60 ML BOTTLE PO ONE (10:36)
[2021-06-18] MEDS: INSULIN GLARGINE 100 UNIT/ML SUBCUT SCH (12:57)
[2021-06-18] MEDS: AZITHROMYCIN INJ 500 MG in SODIUM CHLORIDE 0.9% 250 ML IV SCH (12:58)
[2021-06-18] MEDS: DOPamine 800 MG/250 ML PREMIX IV PRN (17:27)
[2021-06-18] MEDS: SODIUM ZIRCONIUM CYCLOSILICATE 10 GM PACK PO SCH (20:33)
[2021-06-19 04:57] LABS: ABG Base Excess -7.9 MMOL/L (-2.5-2.5); ABG HCO3 18.2 MMOL/L (20-26); ABG Oxygen Saturation 97.2 % (95-100); ABG PCO2 37.6 MM HG (35-48); ABG PH 7.293 (7.35-7.45); ABG TCO2 15.8 MMOL/L (23-27)
[2021-06-19 05:19] LABS: Basophils % 0.1 % (0.0-0.8); Hematocrit 42.7 VOL% (42.0-52.0); Immature Granulocytes % 0.9 %; Immature Granulocytes Absolute 0.18 #; Lymphocytes # 0.3 10*3/uL (1.4-4.0); Lymphocytes % 1.6 % (21.2-54.2); Mean Corpuscular HGB Conc 32.8 GM/DL (32-36); Mean Corpuscular Volume 91.8 FL (87-102); Mean Platelet Volume 11.7 FL (9.6-12.0); Monocytes % 1.7 % (1.7-12.7); Neutrophils % 95.7 % (38.7-73.9); Platelet Count 165 T/CUMM (130-400); Red Blood Count 4.65 MC/CUMM (3.8-5.5); Red Cell Distribution Width 14.9 % (9.3-17.3); White Blood Count 20.5 T/CUMM (4-12)
[2021-06-19] MEDS: methylPREDNISolone SOD SUC 40 MG/1 ML VIAL IV SCH ×4 (05:20→23:49)
[2021-06-19] MEDS: INSULIN LISPRO 100 UNIT/ML SUBCUT SCH ×4 (05:20→23:49)
[2021-06-19 05:42] LABS: Bilirubin,Total 0.7 MG/DL (0.20-1.00); Calcium 8.5 MG/DL (8.5-10.1); Osmolality,Calculated 332.8 MOS/KG (273-304); Potassium 4.9 MMOL/L (3.5-5.1)
[2021-06-19 05:51] LABS: Calcium 8.3 MG/DL (8.5-10.1); Osmolality,Calculated 338.7 MOS/KG (273-304)
[2021-06-19 05:52] LABS: Lymphocytes 1 % (20-55); Platelet Estimate Adequate; Segmented Neutrophils 98 % (50-85); Total Cells Counted 100
[2021-06-19] MEDS: FAMOTIDINE 20 MG TABLET PO SCH (08:20)
[2021-06-19] MEDS: APIXABAN 2.5 MG TABLET PO SCH ×2 (08:20→20:33)
[2021-06-19] MEDS: AMIODARONE 200 MG TABLET PO SCH (08:20)
[2021-06-19] MEDS: ATORVASTATIN 20 MG TABLET PO SCH (08:20)
[2021-06-19] MEDS: BISACODYL 5 MG TABLET PO SCH (08:20)
[2021-06-19] MEDS: INSULIN GLARGINE 100 UNIT/ML SUBCUT SCH (08:22)
[2021-06-19] MEDS: SEVELAMER CARBONATE 800 MG TABLET PO SCH ×3 (09:03→16:22)
[2021-06-19] MEDS: SODIUM ZIRCONIUM CYCLOSILICATE 10 GM PACK PO SCH ×2 (10:30→20:33)
[2021-06-19] MEDS: AZITHROMYCIN INJ 500 MG in SODIUM CHLORIDE 0.9% 250 ML IV SCH (11:50)
[2021-06-20] MEDS: DOPamine 800 MG/250 ML PREMIX IV PRN (00:55)
[2021-06-20 05:03] LABS: Basophils % 0.1 % (0.0-0.8); Hematocrit 43.3 VOL% (42.0-52.0); Hemoglobin 14.7 GM/DL (14.0-18.0); Immature Granulocytes % 0.7 %; Immature Granulocytes Absolute 0.14 #; Lymphocytes # 0.2 10*3/uL (1.4-4.0); Lymphocytes % 0.9 % (21.2-54.2); Mean Corpuscular HGB Conc 33.9 GM/DL (32-36); Mean Corpuscular Volume 90.2 FL (87-102); Mean Platelet Volume 11.4 FL (9.6-12.0); Monocytes % 2.3 % (1.7-12.7); Platelet Count 124 T/CUMM (130-400); Red Cell Distribution Width 14.6 % (9.3-17.3); White Blood Count 20.7 T/CUMM (4-12)
[2021-06-20 05:10] LABS: ABG Base Excess -4.3 MMOL/L (-2.5-2.5); ABG HCO3 20.9 MMOL/L (20-26); ABG Oxygen Saturation 98.1 % (95-100); ABG PCO2 33.7 MM HG (35-48); ABG PH 7.379 (7.35-7.45); ABG TCO2 16.9 MMOL/L (23-27)
[2021-06-20 05:30] LABS: Platelet Estimate Normal; Segmented Neutrophils 99 % (50-85); Total Cells Counted 100
[2021-06-20 05:36] LABS: Calcium 7.8 MG/DL (8.5-10.1)
[2021-06-20] MEDS: INSULIN LISPRO 100 UNIT/ML SUBCUT SCH ×6 (05:45→23:33)
[2021-06-20] MEDS: methylPREDNISolone SOD SUC 40 MG/1 ML VIAL IV SCH ×4 (05:45→23:33)
[2021-06-20] MEDS: SEVELAMER CARBONATE 800 MG TABLET PO SCH ×3 (10:03→17:13)
[2021-06-20] MEDS: APIXABAN 2.5 MG TABLET PO SCH ×2 (10:04→20:40)
[2021-06-20] MEDS: AMIODARONE 200 MG TABLET PO SCH (10:04)
[2021-06-20] MEDS: BISACODYL 5 MG TABLET PO SCH (10:04)
[2021-06-20] MEDS: FAMOTIDINE 20 MG TABLET PO SCH (10:04)
[2021-06-20] MEDS: ATORVASTATIN 20 MG TABLET PO SCH (10:04)
[2021-06-20] MEDS: INSULIN GLARGINE 100 UNIT/ML SUBCUT SCH (10:05)
[2021-06-20] MEDS: SODIUM ZIRCONIUM CYCLOSILICATE 10 GM PACK PO SCH ×2 (10:07→20:40)
[2021-06-20] MEDS: AZITHROMYCIN INJ 500 MG in SODIUM CHLORIDE 0.9% 250 ML IV SCH (11:50)
[2021-06-20] MEDS ORDERED: DEXTROSE 50% 25 GM/50 ML SYRINGE IV PRN (20:32)
[2021-06-20] MEDS ORDERED: INSULIN GLARGINE 100 UNIT/ML SUBCUT SCH (21:00)
[2021-06-21] MEDS: INSULIN LISPRO 100 UNIT/ML SUBCUT SCH ×5 (01:37→15:45)
[2021-06-21 04:17] LABS: ABG HCO3 20.2 MMOL/L (20-26); ABG PCO2 38.1 MM HG (35-48); ABG PH 7.342 (7.35-7.45); ABG PO2 73.7 MM HG (80-95); ABG TCO2 21.4 MMOL/L (23-27)
[2021-06-21 05:41] LABS: Basophils % 0.1 % (0.0-0.8); Hematocrit 45.8 VOL% (42.0-52.0); Hemoglobin 15.4 GM/DL (14.0-18.0); Immature Granulocytes % 0.7 %; Immature Granulocytes Absolute 0.18 #; Lymphocytes # 0.1 10*3/uL (1.4-4.0); Lymphocytes % 0.5 % (21.2-54.2); Mean Corpuscular HGB Conc 33.6 GM/DL (32-36); Mean Platelet Volume 12.8 FL (9.6-12.0); Neutrophils % 96.7 % (38.7-73.9); Red Blood Count 4.98 MC/CUMM (3.8-5.5); Red Cell Distribution Width 14.7 % (9.3-17.3)
[2021-06-21 05:42] LABS: Platelet Count 94 T/CUMM (130-400)
[2021-06-21 05:45] LABS: Calcium 7.4 MG/DL (8.5-10.1); Osmolality,Calculated 331.1 MOS/KG (273-304); Potassium 4.5 MMOL/L (3.5-5.1)
[2021-06-21 05:53] LABS: Lymphocytes 5 % (20-55); Platelet Estimate Decreased; Segmented Neutrophils 92 % (50-85); Total Cells Counted 100
[2021-06-21] MEDS: DOPamine 800 MG/250 ML PREMIX IV PRN (06:11)
[2021-06-21] MEDS: methylPREDNISolone SOD SUC 40 MG/1 ML VIAL IV SCH ×3 (06:11→18:21)
[2021-06-21] MEDS: APIXABAN 2.5 MG TABLET PO SCH (08:10)
[2021-06-21] MEDS: INSULIN GLARGINE 100 UNIT/ML SUBCUT SCH (08:10)
[2021-06-21] MEDS: FAMOTIDINE 20 MG TABLET PO SCH (08:10)
[2021-06-21] MEDS: ATORVASTATIN 20 MG TABLET PO SCH (08:10)
[2021-06-21] MEDS: SEVELAMER CARBONATE 800 MG TABLET PO SCH ×3 (08:10→16:28)
[2021-06-21] MEDS: AMIODARONE 200 MG TABLET PO SCH (08:10)
[2021-06-21] MEDS: BISACODYL 5 MG TABLET PO SCH (08:49)
[2021-06-21] MEDS ORDERED: APIXABAN 5 MG TABLET PER TUBE SCH (09:00)
[2021-06-21] MEDS: SODIUM ZIRCONIUM CYCLOSILICATE 10 GM PACK PO SCH (11:18)
[2021-06-21] MEDS ORDERED: EPINEPHrine 1 MG/10 ML SYRINGE ONE ×2 (12:00→18:25)
[2021-06-21 13:09] LABS: Calcium 8.1 MG/DL (8.5-10.1); Osmolality,Calculated 332.7 MOS/KG (273-304); Potassium 4.9 MMOL/L (3.5-5.1)
[2021-06-21] MEDS ORDERED: NOREPINEPHRINE 4 MG/4 ML VIAL IV ONE (13:49)
[2021-06-21] MEDS ORDERED: SODIUM BICARBONATE 50 MEQ/50 ML VIAL IV ONE (13:51)
[2021-06-21] MEDS: NOREPINEPHRINE 8 MG in SODIUM CHLORIDE 0.9% 242 ML IV PRN (13:54)
[2021-06-21] MEDS ORDERED: SODIUM BICARBONATE 50 MEQ/50 ML SYRINGE IV ONE (18:25)
== END 2021-06-21 18:27 | disposition expired | DRG 207 ==
LOC: EDBD → EDUNIT# → N.ED 21:23 → N.EDINP 23:09 → SUATTDRO 23:09 → N.CC 06-10 18:20
PROVIDERS: ADMIT Internal Medicine; ATTEND Internal Medicine